=== PATIENT | female | born 1980 ===

== ENCOUNTER 2017-02-21 14:55 | Emergency (ER) | payer OTHER ==
[2017-02-21 15:35] VITALS: BMI 22.6
[2017-02-21 15:41] VITALS: BP 111/78; PULSE 91; RESP 16; TEMP 98.3; O2SAT 98
--- NOTE | 2017-02-21 16:09 | ED PDOC ---
Arrival/HPI - General Chief Complaint: Eye Problem Time Seen by Provider: 02/21/17 15:59 Historian: Patient, Family - History of Present Illness Time/Duration: Prior to Arrival Symptom Onset: Sudden Symptom Course: Unchanged Quality: Stabbing Severity Level: Severe Associated Symptoms (Text): 02/21/17 16:05 At work this morning patient poked herself in the right eye with a taylor tag. Complains of tearing and pain. No visual disturbance. She does not wear corrective lenses. Past Medical History - Infectious Disease Hx of Infectious Diseases: None - Psychiatric Hx Substance Use: No - Anesthesia Hx Anesthesia: No Family/Social History - Physician Review Nursing Documentation Reviewed: Yes Family/Social History: Unknown Family HX Smoking Status: Never Smoked Hx Alcohol Use: No Hx Substance Use: No Allergies/Home Meds Allergies/Adverse Reactions: Allergies No Known Allergies Allergy (Verified 02/21/17 15:35) Review of Systems - Physician Review All systems were reviewed & negative as marked: Yes Physical Exam Vital Signs Temp Pulse Resp BP Pulse Ox 02/21/17 15:40 98.3 F 91 H 16 111/78 98 Temperature: Afebrile Blood Pressure: Normal Pulse: Regular Respiratory Rate: Normal Appearance: Positive for: Well-Appearing, Non-Toxic, Comfortable, Uncomfortable Pain Distress: Mild Mental Status: Positive for: Alert and Oriented X 3 - Systems Exam Extroacular Muscles: Present: EOMI Conjunctiva: Present: Injected, Other (Fluorescein staining positive in the right eye at 6:00) Medical Decision Making ED Course and Treatment: 02/21/17 16:06 Improved with Alcaine Disposition/Present on Arrival - Present on Arrival Any Indicators Present on Arrival: No History of DVT/PE: No History of Uncontrolled Diabetes: No Urinary Catheter: No History of Decub. Ulcer: No History Surgical Site Infection Following: None - Disposition Have Diagnosis and Disposition been Completed?: Yes Diagnosis: Corneal abrasion Disposition: HOME/ ROUTINE Disposition Time: 16:07 Patient Plan: Discharge Condition: IMPROVED Discharge Instructions (ExitCare): Corneal Abrasion (ED) Prescriptions: Gentamicin Sulfate [Garamycin 0.3% Opth] 5 ml OD Q6 #1 bottle oxyCODONE/Acetaminophen [Percocet 5/325 mg Tab] 1 ea PO Q6 #15 tab Referrals: Florentino Biggs MD [Staff Provider] - Follow up with primary Forms: WORK NOTE
== END 2017-02-21 16:35 | disposition home or self-care (01) ==
LOC: ED 14:55
DX: S05.01XA Injury of conjunctiva and corneal abrasion without foreign body, right eye, initial encounter (principal); W22.8XXA Striking against or struck by other objects, initial encounter; Y93.89 Activity, other specified; Y92.89 Other specified places as the place of occurrence of the external cause